=== PATIENT | female | born 1960 | race Caucasian/White ===

== ENCOUNTER 2018-03-08 13:21 | Outpatient (CLI) | payer MEDICAID ==
[~2018-03-08] VITALS: Ht 162.6 cm; Wt 90.7 kg
[2018-03-08 13:57] VITALS: BP 172/90
[2018-03-08] MEDS ORDERED: RENVELA0.8 GM ORAL (15:18)
[2018-03-08] MEDS ORDERED: METOPROLOL TART25 MG ORAL (15:18)
[2018-03-08] MEDS ORDERED: SENSIPAR30 MG ORAL (15:18)
[2018-03-08] MEDS ORDERED: LISINOPRIL5 MG ORAL (15:18)
[2018-03-08] MEDS ORDERED: NORVASC5 MG ORAL (15:18)
[2018-03-08] MEDS ORDERED: FOLIC ACID1 MG ORAL (15:18)
[2018-03-08] MEDS ORDERED: HYDRALAZINE HCL10 MG ORAL (15:18)
--- NOTE | 2018-03-08 18:29 | GI Initial Consult Note ---
History of Present Illness General Date patient seen: Mar 08, 2018 Time patient seen: 15:00 Referring physician: HMO Reason for Consultation: PANCREATIC CYST Present Illness HPI 57 year old female patient presents today for evaluation of a pancreatic cyst vs mass as seen on CT. The patient has a history of anemia, admitted to [facility] s/p blood transfusion. She has a history of colonoscopy approximately 9 years ago. In addition, the patient has complaint of weight loss of 12 lbs. Denies any changes in dietary habits. No signs of abuse or neglect. Patient is not fall risk. Home Meds Reported Medications Cinacalcet* (SENSIPAR*) 30 Mg Tablet, 30 MG ORAL DAILY, TAB 03/08/18 Hydralazine Hcl* (HYDRALAZINE HCL*) 10 Mg Tablet, ORAL EVERY 6 HOURS, TAB 03/08/18 Amlodipine Besylate (Norvasc) 5 Mg Tablet, ORAL DAILY, TAB 03/08/18 Sevelamer Carbonate* (RENVELA*) 0.8 Gm Powd.pack, ORAL THREE TIMES A DAY, PACK 03/08/18 Folic Acid* (FOLIC ACID*) 1 Mg Tablet, 1 MG ORAL DAILY, TAB 03/08/18 Metoprolol Tartrate* (METOPROLOL TARTRATE*) 25 Mg Tablet, ORAL EVERY 12 HOURS, TAB 03/08/18 Lisinopril (LISINOPRIL*) 5 Mg Tablet, ORAL DAILY, TAB 03/08/18 Med list reviewed/reconciled: Yes Allergies: Coded Allergies: IODINE (Verified Allergy, Unknown, 03/08/18) Patient History PMH Narrative Right Breast CA >> s/p chemo Anemia with blood transfusion ESRD - Lt AV fistula >> MWF HTN Right Kidney missing Surgical history appendectomy hysterectomy bilateral ovary removal 2016 right lumpectomy Left kidney cyst Family History Narrative Father - prostate cancer Brother - prostate cancer Social History: Reports: other - Coffee; Denies: smoking, alcohol use, drug use Review of Systems All Other Systems: negative except mentioned in HPI Physical Exam Vital Signs Date Time Temp Pulse Resp B/P (MAP) Pulse Ox O2 Delivery O2 Flow Rate FiO2 03/08/18 13:57 98.9 80 18 172/90 96 Sp02 EP Interpretation: reviewed, normal General Appearance: well appearing, no apparent distress, alert Head: normocephalic EENT: PERRL/EOMI, normal ENT inspection Neck: supple Respiratory: normal breath sounds, no respiratory distress Cardiovascular: normal rate Gastrointestinal: normal inspection, non tender, soft, normal bowel sounds, non -distended Rectal: deferred Genitourinary: no CVA tenderness Musculoskeletal: normal inspection, back normal Neurologic: normal inspection, alert, oriented x3, responsive Psychiatric: normal inspection, judgement/insight normal, memory normal Skin: normal inspection, normal color, no rash, warm/dry, palpation normal, well hydrated Lymphatic: normal inspection, no adenopathy GI: Plan Problems: (1) Pancreatic cyst (2) Anemia (3) Weight loss (4) ESRD (end stage renal disease) (5) HTN (hypertension) (6) Encounter for diagnostic endoscopy (7) GERD (gastroesophageal reflux disease) Plan Patient needs EUS to evaluate pancreatic cyst In addition, needs colonoscopy screening Will schedule patient, pending PA, will contact pt - CLD & (Nulytely/Suprep/Movi-Prep) prep instructions given and acknowledged by patient. - NPO @ SC day prior procedure explained. Will follow with additional rec post procedure Seen with Dr. Adams. Thank you for this patient referral. The patient was seen and examined at bedside and all new and available data was reviewed in the patients chart. I agree with the above findings, impression and plan. (Patient seen earlier today. Signature stamp does not reflect patient encounter time.). - MD Muriel Callaway,[facility] CenterGerald HAT BINDER Mar 08, 2018 18:29
== END 2018-03-08 13:51 | disposition home or self-care (01) ==
LOC: PAN 13:21
DX: K86.2 Cyst of pancreas (principal); D64.9 Anemia, unspecified; R63.4 Abnormal weight loss; I12.0 Hypertensive chronic kidney disease with stage 5 chronic kidney disease or end stage renal disease; N18.6 End stage renal disease; Z90.5 Acquired absence of kidney
CPT/HCPCS: 99203

== ENCOUNTER 2018-06-16 09:17 | Day surgery (SDC) | payer MEDICAID ==
[2018-06-16] VITALS (9 sets, daily range): BP systolic 169–184; BP diastolic 80–97
[~2018-06-16] VITALS: Ht 162.6 cm; Wt 84.4 kg
[~2018-06-16 09:17] MED LIST: FOLIC ACID1 MG ORAL; HYDRALAZINE HCL10 MG ORAL; LISINOPRIL5 MG ORAL; METOPROLOL TART25 MG ORAL; NORVASC5 MG ORAL; RENVELA0.8 GM ORAL; SENSIPAR30 MG ORAL
[2018-06-16] MEDS ORDERED: ELIQUIS2.5 MG PO (09:46)
[2018-06-16] MEDS ORDERED: ANASTROZOLE1 MG PO (09:52)
[2018-06-16] MEDS ORDERED: OMEPRAZOLE20 M2 ORAL (09:52)
[2018-06-16 10:35] LABS: BASOPHILS % (AUTO) 1.6 % (0.0-2.0); EOSINOPHILS % (AUTO) 5.5 % (0.0-3.0); HEMATOCRIT 35.9 % (37.0-47.0); HEMOGLOBIN 10.8 G/DL (12.0-16.0); LYMPHOCYTES % (AUTO) 10.8 % (20.0-45.0); MEAN CORPUSCULAR VOLUME 99 FL (80-99); MONOCYTES % (AUTO) 8.3 % (1.0-10.0); NEUTROPHILS % (AUTO) 73.7 % (45.0-75.0); PLATELET COUNT 176 K/UL (150-450); RED BLOOD COUNT 3.61 M/UL (4.20-5.40); WHITE BLOOD COUNT 7.2 K/UL (4.8-10.8)
[2018-06-16 10:45] LABS: AMYLASE 91 U/L (25-115)
[2018-06-16 10:47] LABS: ANION GAP 11 mmol/L (5-15); BLOOD UREA NITROGEN 63 mg/dL (7-18); CALCIUM 9.2 MG/DL (8.5-10.1); CARBON DIOXIDE 27 MMOL/L (21-32); CHLORIDE 106 MMOL/L (98-107); CREATININE 11.7 MG/DL (0.55-1.30); SODIUM 144 MMOL/L (136-145)
[2018-06-16 10:52] LABS: ALANINE AMINOTRANSFERASE 18 U/L (12-78); ALBUMIN 3.3 G/DL (3.4-5.0); ALBUMIN/GLOBULIN RATIO 1.1 (1.0-2.7); ALKALINE PHOSPHATASE 83 U/L (46-116); ASPARTATE AMINO TRANSFERASE 14 U/L (15-37); BILIRUBIN,TOTAL 0.6 MG/DL (0.2-1.0)
[2018-06-16] MEDS ORDERED: Propofol 200mg/20ml IV ONE (11:40)
[2018-06-16] MEDS ORDERED: Midazolam 2mg/2ml Inj ONE (11:40)
[2018-06-16] MEDS ORDERED: fentaNYL 100 mcg/2 mL IV ONE (11:40)
[2018-06-16] MEDS ORDERED: LR 1000ml ONE (11:40)
--- NOTE | 2018-06-16 11:40 | Pre-Procedure Note/Attestation ---
Pre-Procedure Note/Attestation Complete Prior to Procedure Planned Procedure: not applicable Procedure Narrative: eus Indications for Procedure Pre-Operative Diagnosis: panc cyst Attestation I attest that I discussed the nature of the procedure; its benefits; risks and complications; and alternatives (and the risks and benefits of such alternatives ), prior to the procedure, with the patient (or the patient's legal major account representative). I attest that, if there was a reasonable possibility of needing a blood transfusion, the patient (or the patient's legal major account representative) was given the [facility] standardized written summary, pursuant to the [place] Blood Safety Act ([place] Health and Safety Code # 1645, as amended). I attest that I re-evaluated the patient just prior to the surgery and that there has been no change in the patient's H&P, except as documented below: Armando Adams MD Jun 16, 2018 11:40
--- NOTE | 2018-06-16 11:40 | Short Stay Surgery H&P ---
History of Present Illness History of Present Illness Chief Complaint see recent office note HPI Evette Harrington is a 57 year old female who was admitted on for Pancreatic Mass Patient History Allergies: Coded Allergies: IODINE (Verified Allergy, Severe, 06/16/18) SWOLLEN TONGUE, HIVES Medication History Scheduled Anastrozole* (Arimidex*), 1 MG PO DAILY, (Reported) Apixaban (Eliquis), 2.5 MG PO DAILY, (Reported) Cinacalcet* (Sensipar*), 30 MG ORAL DAILY, (Reported) Folic Acid* (Folic Acid*), 1 MG ORAL DAILY, (Reported) Hydralazine Hcl* (Hydralazine Hcl*), 25 MG ORAL TID, (Reported) Lisinopril (Lisinopril*), 20 MG ORAL BID, (Reported) Metoprolol Tartrate* (Metoprolol Tartrate*), 50 MG ORAL EVERY 12 HOURS, ( Reported) Omeprazole (Omeprazole), 20 MG ORAL DAILY, (Reported) Sevelamer Carbonate* (Renvela*), 0.8 GM ORAL THREE TIMES A DAY, (Reported) Discontinued Medications Amlodipine Besylate (Norvasc), Unknown Dose ORAL DAILY, (Reported) Discontinued Reason: Pt stopped taking med Physical Exam Vital Signs Last Vital Signs Date Time Temp Pulse Resp B/P (MAP) Pulse Ox O2 Delivery O2 Flow Rate FiO2 06/16/18 10:35 98.0 74 18 179/94 96 Room Air Labs Laboratory Tests Test 06/16/18 10:30 White Blood Count 7.2 K/UL (4.8-10.8) Red Blood Count 3.61 M/UL (4.20-5.40) L Hemoglobin 10.8 G/DL (12.0-16.0) L Hematocrit 35.9 % (37.0-47.0) L Mean Corpuscular Volume 99 FL (80-99) Mean Corpuscular Hemoglobin 30.0 PG (27.0-31.0) Mean Corpuscular Hemoglobin Concent 30.2 G/DL (32.0-36.0) L Red Cell Distribution Width 17.0 % (11.6-14.8) H Platelet Count 176 K/UL (150-450) Mean Platelet Volume 6.4 FL (6.5-10.1) L Neutrophils (%) (Auto) 73.7 % (45.0-75.0) Lymphocytes (%) (Auto) 10.8 % (20.0-45.0) L Monocytes (%) (Auto) 8.3 % (1.0-10.0) Eosinophils (%) (Auto) 5.5 % (0.0-3.0) H Basophils (%) (Auto) 1.6 % (0.0-2.0) Sodium Level 144 MMOL/L (136-145) Potassium Level 4.0 MMOL/L (3.5-5.1) Chloride Level 106 MMOL/L (98-107) Carbon Dioxide Level 27 MMOL/L (21-32) Anion Gap 11 mmol/L (5-15) Blood Urea Nitrogen 63 mg/dL (7-18) H Creatinine 11.7 MG/DL (0.55-1.30) H Estimat Glomerular Filtration Rate 3.3 mL/min (>60) Glucose Level 82 MG/DL (74-106) Calcium Level 9.2 MG/DL (8.5-10.1) Total Bilirubin 0.6 MG/DL (0.2-1.0) Aspartate Amino Transf (AST/SGOT) 14 U/L (15-37) L Alanine Aminotransferase (ALT/SGPT) 18 U/L (12-78) Alkaline Phosphatase 83 U/L (46-116) Total Protein 6.3 G/DL (6.4-8.2) L Albumin 3.3 G/DL (3.4-5.0) L Globulin 3.0 g/dL Albumin/Globulin Ratio 1.1 (1.0-2.7) Amylase Level 91 U/L (25-115) Lipase 256 U/L (73-393) Plan Attestation Are the patient's medical conditions optimized for surgery? Armando Adams MD Jun 16, 2018 11:40
--- NOTE | 2018-06-16 12:10 | Endoscopy Procedure Note ---
Endoscopy Procedure Note General Indication for Procedure: anemia, pancreatic cyst Procedures Performed: EGD, other - EUS Operative Findings/Diagnosis: gastritis, pancreatic cyst Specimen: yes Pt Tolerated Procedure Well: Yes Estimated Blood Loss: none Anesthesia Anesthesiologist: analisa Anesthesia: MAC Inserted Devices Implant(s) used?: No GI Core Measures 50 yrs or older w/o bx or poly: Not Applicable 10yrs. F/U not recommended: Not Applicable Armando Adams MD Jun 16, 2018 12:10
--- NOTE | 2018-06-16 12:29 | Anethesia Preoperative Eval ---
Anesthesia Pre-op PMH/ROS General Date of Evaluation: Jun 16, 2018 Time of Evaluation: 11:40 Anesthesiologist: Ed ASA Score: ASA 3 Mallampati Score Class I : Soft palate, uvula, fauces, pillars visible Class II: Soft palate, uvula, fauces visible Class III: Soft palate, base of uvula visible Class IV: Only hard plate visible Mallampati Classification: Class III Surgeon: Angie Diagnosis: Abdominal pain Surgical Procedure: EGD with EUD Anesthesia History: none Family History: no anesthesia problems Allergies: Coded Allergies: IODINE (Verified Allergy, Severe, 06/16/18) SWOLLEN TONGUE, HIVES Medications: see eMAR Patient NPO?: Yes Past Medical History Cardiovascular: Reports: HTN; Denies: CAD, ME, valve dz, arrhythmia, other Pulmonary: Denies: asthma, COPD, AURELIA, other Gastrointestinal/Genitourinary: Reports: GERD, ESRD - on HD last Neurologic/Psychiatric: Reports: depression/anxiety; Denies: dementia, CVA, TIA, other Endocrine: Denies: DM, hypothyroidism, steroids, other HEENT: Reports: cataract (L), cataract (R); Denies: glaucoma, [place] (L), [place] (R), other Hematology/Immune: Reports: anemia; Denies: DVT, bleeding disorder, other Musculoskeletal/Integumentary: Denies: OA, RA, DJD, DDD, edema, other Other: obesity PMH Narrative: as above PSxH Narrative: A-V shunt placement Anesthesia Pre-op Phys. Exam Physician Exam Last Vital Signs Date Time Temp Pulse Resp B/P (MAP) Pulse Ox O2 Delivery O2 Flow Rate FiO2 06/16/18 10:35 98.0 74 18 179/94 96 Room Air Constitutional: NAD Neurologic: CN 2-12 intact Cardiovascular: RRR, no M/R/G Respiratory: CTA Gastrointestinal: other - obesity Airway Exam Mallampati Score: Class III MO: limited Neck: short Teeth: missing Dentures: no upper, no lower Anesthesia Pre-op A/P Labs Hematology Test 06/16/18 10:30 White Blood Count 7.2 K/UL (4.8-10.8) Red Blood Count 3.61 M/UL (4.20-5.40) L Hemoglobin 10.8 G/DL (12.0-16.0) L Hematocrit 35.9 % (37.0-47.0) L Mean Corpuscular Volume 99 FL (80-99) Mean Corpuscular Hemoglobin 30.0 PG (27.0-31.0) Mean Corpuscular Hemoglobin Concent 30.2 G/DL (32.0-36.0) L Red Cell Distribution Width 17.0 % (11.6-14.8) H Platelet Count 176 K/UL (150-450) Mean Platelet Volume 6.4 FL (6.5-10.1) L Neutrophils (%) (Auto) 73.7 % (45.0-75.0) Lymphocytes (%) (Auto) 10.8 % (20.0-45.0) L Monocytes (%) (Auto) 8.3 % (1.0-10.0) Eosinophils (%) (Auto) 5.5 % (0.0-3.0) H Basophils (%) (Auto) 1.6 % (0.0-2.0) Chemistry Test 06/16/18 10:30 Sodium Level 144 MMOL/L (136-145) Potassium Level 4.0 MMOL/L (3.5-5.1) Chloride Level 106 MMOL/L (98-107) Carbon Dioxide Level 27 MMOL/L (21-32) Anion Gap 11 mmol/L (5-15) Blood Urea Nitrogen 63 mg/dL (7-18) H Creatinine 11.7 MG/DL (0.55-1.30) H Estimat Glomerular Filtration Rate 3.3 mL/min (>60) Glucose Level 82 MG/DL (74-106) Calcium Level 9.2 MG/DL (8.5-10.1) Total Bilirubin 0.6 MG/DL (0.2-1.0) Aspartate Amino Transf (AST/SGOT) 14 U/L (15-37) L Alanine Aminotransferase (ALT/SGPT) 18 U/L (12-78) Alkaline Phosphatase 83 U/L (46-116) Total Protein 6.3 G/DL (6.4-8.2) L Albumin 3.3 G/DL (3.4-5.0) L Globulin 3.0 g/dL Albumin/Globulin Ratio 1.1 (1.0-2.7) Amylase Level 91 U/L (25-115) Lipase 256 U/L (73-393) Studies Pre-op Studies: EKG - SR Risk Assessment & Plan Assessment: ASA3 Plan: mac Status Change Before Surgery: Ras Jennings MD Jun 16, 2018 12:29
[2018-06-16] MEDS ORDERED: fentaNYL 100 mcg/2 mL IV PRN (12:30)
--- NOTE | 2018-06-16 12:46 | Immediate Post-Op Evaluation ---
Immediate Post-Op Evalulation Immediate Post-Op Evalulation Procedure: EGD with EUD Date of Evaluation: Jun 16, 2018 Time of Evaluation: 12:45 IV Fluids: 150 Blood Products: none Estimated Blood Loss: none Urinary Output: none Blood Pressure Systolic: 164 Blood Pressure Diastolic: 78 Pulse Rate: 68 Respiratory Rate: 20 O2 Sat by Pulse Oximetry: 98 Temperature (Fahrenheit): 97.7 Pain Score (1-10): 1 Nausea: No Vomiting: No Complications none Patient Status: reacts, patent, none Hydration Status: adequate Ras Ward MD Jun 16, 2018 12:46
--- NOTE | 2018-06-16 17:30 | Procedure Note ---
DATE OF PROCEDURE: 06/16/2018 SURGEON: Armando Adams M.D. ANESTHESIOLOGIST: Ras Ward M.D. PROCEDURE: Upper endoscopy with biopsy and endoscopic ultrasound. INSTRUMENT: Olympus upper endoscope and EUS scope. REASON FOR PROCEDURE: The procedure, risks, benefits, and possible consequences, including hemorrhage, aspiration, perforation and infection, and alternative treatments, were explained to the patient/legal guardian by Dr. Armando Adams and the patient/legal guardian understood and accepted these risks. INDICATION: Pancreatic cyst, anemia. PROCEDURE IN DETAIL: After informed consent was obtained and the patient was adequately sedated, the Olympus upper endoscope was advanced from the mouth into the stomach. We had a hard time to getting the regular scope in the duodenum. We required abdominal pressure to be able to get the scope into the duodenal bulb and even passage into the second portion of duodenum was very challenging, so actually we only advanced the scope up to the duodenal bulb. There was evidence of some gastritis. Biopsy from antrum was obtained to rule out H. pylori infection. At this time, the upper endoscope was retrieved. EUS scope was introduced. We had the same problem with EUS scope. We could not pass it beyond the duodenal bulb. Starting scanning at GE junction, we saw the celiac axis. There was no obvious celiac axis lymphadenopathy. There was 1.4 cm calcified nodule seems to be associated with the left adrenal gland. This needs to be followed by primary care and workup. The pancreatic parenchyma was in the body and tail. Rest looked within normal limits. There was no evidence of any pancreatic duct dilatation. There were may be 1 or 2 gastric varices small seen in this area. There was evidence of this simple looking cyst at the genu of the pancreas measured 9.4 mm x 7.8 mm. This cyst did not seems to be connected to the pancreatic duct. Also, the splenic vein was extremely close to this cyst. So, there was a not a very safe angle to be able to FNA this cyst, so we decided not to. There was no evidence of any pancreatitis. Then, scope was advanced into the antrum and then into the duodenal bulb. Again, we could not pass the scope in the second portion of duodenum. Gallbladder was seen without any gallstones. Examination of the pancreatic and the duodenal bulb looks within normal limits. There was no dilated common bile duct. At this time, the scope was retrieved and procedure was terminated. SUMMARY OF FINDINGS: 1. Challenging procedure. We could not pass the scope in the second portion of duodenum. Only up to the duodenal bulb was examined. 2. Gastritis, status post biopsy to rule out H. pylori infection. 3. A 9.4 mm simple looking pancreatic cyst not connected to the pancreatic duct very close to the splenic vein. Given the small size less than a cm and very close proximity to splenic vein, we did not do FNA at this time. 4. A 1.4 cm calcified nodule associated with the left adrenal gland needs to be further workup by the primary team. 5. About 2 nonspecific gastric varices were seen. RECOMMENDATIONS: 1. We recommend repeat imaging studies in 1 year. If this cyst is growing in size, then we will repeat EUS and attempt FNA at that time. 2. This left adrenal gland nodule needs to be evaluated by the primary care physician. 3. Follow up biopsy results and treat accordingly. Armando Adams M.D. DR: MAICOL JOB#: [id number] CC: FRANDY
[2018-06-17 08:56] VITALS: BP 156/74
--- NOTE | 2018-06-17 08:56 | 48 Hour Post Anesthesia Eval ---
Post Anesthesia Evaluation Procedure: EGD with EUD Date of Evaluation: Jun 16, 2018 Time of Evaluation: 12:02 Blood Pressure Systolic: 156 0: 74 Pulse Rate: 72 Respiratory Rate: 20 Temperature (Fahrenheit): 97.6 O2 Sat by Pulse Oximetry: 98 Airway: patent Nausea: No Vomiting: No Pain Intensity: 1 Hydration Status: adequate Cardiopulmonary Status: stable Mental Status/LOC: patient returned to baseline Follow-up Care/Observations: n/a Post-Anesthesia Complications: none Follow-up care needed: ready to discharge Ras Ward MD Jun 17, 2018 08:56
--- NOTE | 2018-06-18 23:38 | Cardiology Report ---
APPROVED REPORT EKG Measurement Heart [id number] Sinus rhythm with premature atrial complexes Possible Left atrial enlargement Borderline ECG
== END 2018-06-16 14:05 | disposition home or self-care (01) ==
LOC: GAS 09:17
DX: K86.2 Cyst of pancreas (principal); D64.9 Anemia, unspecified; K29.50 Unspecified chronic gastritis without bleeding; I86.4 Gastric varices; E27.9 Disorder of adrenal gland, unspecified; K21.9 Gastro-esophageal reflux disease without esophagitis; I12.0 Hypertensive chronic kidney disease with stage 5 chronic kidney disease or end stage renal disease; N18.6 End stage renal disease; Z99.2 Dependence on renal dialysis; F32.9 Major depressive disorder, single episode, unspecified; F41.9 Anxiety disorder, unspecified; E66.9 Obesity, unspecified
CPT/HCPCS: 36415; 43237; 80053; 82150; 83690; 85025; 93005; J2250; J2704; J3010; Z7512; 94003; 94150